=== PATIENT | female | born 1970 | race Caucasian/White ===

== ENCOUNTER → 2018-05-10 | Outpatient (CLI) | payer OTHER, MEDICARE ==
[~2018-05-10] MED LIST: ALPR0.5T6 PO; AMAN100C7 PO; FING0.5C3 PO; FLECTOR1 EACH TD; FLUO60TA PO; GADOBUTROL 7.5 MMOL/7.5 ML VIAL IV ONE; OXYC30TA64 PO; PREG75CA PO; TIZA4CAP PO
--- NOTE | 2018-05-10 13:48 | KCIC ---
EXAM: Brain MRI with and without contrast. HISTORY: Multiple sclerosis. TECHNIQUE: Multiplanar, multisequence magnetic resonance imaging of the brain was performed prior to and following the administration of 5 cc Gadavist intravenous contrast. COMPARISON: 08/23/2013 and 11/11/2005 FINDINGS: There is an enhancing mass with associated susceptibility effect likely due to calcification centered within the posterior left lateral ventricle and abutting the septum pellucidum. This measures 2.6 x 2.0 x 1.8 cm in maximum dimensions. There has been slight interval increase in a cyst measuring 6.6 cm in maximum dimension superior to this lesion and there is a stable cyst measuring 1.6 cm in maximum dimension along the lateral aspect of this lesion. No additional enhancing lesion is seen. There is stable mild asymmetry within the size of the left greater the right occipital horns. There is minimal superior rightward midline shift measuring 2 mm. There is no hydrocephalus. There is a nonspecific focus of T2/FLAIR hyperintensity within the right frontal periventricular white matter. There is a nonspecific focus of signal change within the superior right cerebellum and within the right sparkle. There is no restricted diffusion to suggest acute or subacute infarction. The orbits are unremarkable. The paranasal sinuses are unremarkable. There is a tiny amount of fluid within the mastoid air cells. There are normal flow voids within the cerebral vessels. IMPRESSION: 1. Minimal increased size of an enhancing partially calcified 2.6 cm intraventricular mass along along the posterior left ventricle and an adjacent 6.6 cm cyst. The slow interval change room attendant a greater than 12 year interval favors a benign or low-grade lesion. There is a smaller cyst along the lateral aspect of the lesion which is stable in appearance. 2. Small foci of signal change within the right frontal periventricular white matter, right sparkle and along the superior right cerebellum. The latter of these lesions is more conspicuous compared to the prior study. Given the age of the patient and patient history, this is likely due to known demyelinating disease. There is no lesion enhancement to suggest active demyelination. Electronically signed by: Lily Mari MD (05/10/2018 1:46 PM) [id number]
== END | disposition home or self-care (01) ==
LOC: KCIC MRI 12:19
PROVIDERS: ATTEND Psychiatry & Neurology Neurology with Special Qualifications in Child Neurology
DX: G35 Multiple sclerosis (principal); G93.0 Cerebral cysts
CPT/HCPCS: 70553; A9585